=== PATIENT | female | born 1940 | race Caucasian/White ===

== ENCOUNTER 2017-02-04 06:14 | Inpatient (IN) ==
[2017-02-04] MEDS ORDERED: *HR* FentaNYL (PF) 100 MCG/2 ML VIAL ONE (06:37)
[2017-02-04] MEDS ORDERED: Dexamethasone 4 MG/ML VIAL ONE (06:37)
[2017-02-04] MEDS ORDERED: *HR* Succinylcholine 200 MG/10 ML VIAL IVP ONE (06:37)
[2017-02-04] MEDS ORDERED: *HR* Propofol 200 MG/20 ML VIAL IVP ONE (06:37)
[2017-02-04] MEDS ORDERED: Lidocaine -MPF 2% 2 ML VIAL ONE (06:37)
[2017-02-04] MEDS ORDERED: Ondansetron 4 MG/2 ML VIAL ONE (06:37)
[2017-02-04] MEDS ORDERED: *HR* Remifentanil 1 MG VIAL IVP ONE (06:37)
[2017-02-04] MEDS ORDERED: Lidocaine -MPF 1% 2 ML VIAL ID ONE (06:45)
[2017-02-04] MEDS ORDERED: CeFAZolin Pre 2,000 MG/100 ML 2,000 MG/100 ML BAG IVPB ONE (06:45)
[2017-02-04] MEDS ORDERED: EPHEDrine 50 MG/ML VIAL ONE (06:47)
--- NOTE | 2017-02-04 07:06 | Anesthesia Evaluation PreOp ---
Date of Encounter: 02/04/17 Time of Encounter: 06:55 - Past History Planned Operation: laminectomy, removal of hardware Cardiac History: Hyperlipidemia, Arrhythmia Pulmonary History: Denies Any Significant HX [employer] History: Denies Any Significant HX Other Medical History: GERD Anesthesia History: No Prior Anesthetic Complications Alcohol Use: none Drug use: none Medications and Allergies Atenolol [Tenormin] 50 mg PO BID 10/30/15 [History] Cyanocobalamin (Vitamin B-12) [Vitamin B-12] 100 mcg PO DAILY 10/30/15 [History] Fish Oil/Dha/Epa [Fish Oil 1,200 mg Fish Oil] 1 cap PO DAILY 12/11/15 [History] Naproxen Sodium [Aleve] 220 mg PO BID PRN 12/11/15 [History] Acetaminophen [Tylenol] 500 mg PO Q6HR PRN 06/12/16 [History] OxyCODONE Immed Rel [Roxicodone 5 MG] 5 mg PO Q6HR PRN #60 tablet 06/14/16 [Rx] Allergies No Known Allergies Allergy (Verified 01/28/17 15:24) - Meds/Allergy Pre-op Review Medications Reviewed: Yes Allergies Reviewed: Yes Beta Blockers on Current Med List: Yes (Last dose 1800 02/03/17) Anesthesia Results - Labs Laboratory Tests 06/13/16 01/28/17 01/28/17 04:20 15:35 15:35 WBC 6.2 Hgb 10.8 L Hct 34.5 L Plt Count 277 PT 12.5 H INR 1.2 Sodium Potassium Chloride Carbon Dioxide BUN Creatinine BUN/Creatinine Ratio 19 Glucose 118 H 01/28/17 01/28/17 15:35 15:35 WBC Hgb Hct Plt Count PT INR Sodium 138 Potassium 3.8 Chloride 102 Carbon Dioxide 27 BUN 23 H Creatinine 1.57 H BUN/Creatinine Ratio Glucose - Imaging EKG: report reviewed (sinus kaylee), image reviewed Anesthesia Exam Selected Entries 02/04/17 06:40 Temperature 98.0 F Pulse Rate 60 Respiratory Rate 18 Blood Pressure 194/75 O2 Sat by Pulse Oximetry 98 Weight: 69 kg NPO (# of Hours): over 8 hours - HEENT Pupil (Motor): Pupils equal Mallampati: II Teeth: Edentulous Oral Opening: Greater than 3 - Cardiac Rhythm: Regular Murmur: None - Pulmonary Breath Sounds: bilateral Clear Anesthesia Assess/Plan ASA Score: 2 Modified Dru Scale for Level of Consciousness: Cooperative, oriented, and tranquil Anesthetic Plan: General Monitoring Plan: Standard Monitors Recovery Plan: PACU
[2017-02-04] MEDS ORDERED: Ondansetron 4 MG/2 ML VIAL IVP ONE (07:08)
[2017-02-04] MEDS ORDERED: Acetaminophen IV 1,000 MG/100 ML INFUS..BTL ONE (07:17)
[2017-02-04] MEDS: Ringers Solution, Lactated 1,000 ML IVC SCH ×2 (07:25→09:30)
--- NOTE | 2017-02-04 07:48 | History & Physical Report ---
Date of Encounter: 02/04/17 Time of Encounter: 07:40 24 Hour HP Update - Instructions Instructions: If the History and Physical is less than 30 days old and was completed prior to A.M. admission and or procedure and has NOT been updated on calendar day of procedure please complete this update prior to performing procedure. - Update Patient reports changes in Medical Condition: No Changes in examination, assessment, or condition: No Changes in Medication: No Preop tests/diagnostics Reviewed: Yes Pre-Op MRSA Screen: Negative Surgery Remains Indicated: Yes Consent for Planned Operative Procedure(s) Verified: Yes - Pre-Operative Checklist Preoperative Checklist Indicated: No Prophylactic Antibiotic Ordered: Yes Home Medications Include Beta Xin: Yes Beta Xin Taken Today (Day of Surgery): No Beta Xin Taken Yesterday (Day Prior to Surgery): Yes Is VTE Prophylaxis Indicated?: Yes
[2017-02-04] MEDS ORDERED: *HR* Morphine 10 MG/ML VIAL ONE (10:01)
--- NOTE | 2017-02-04 10:02 | Orthopedic Operative Note ---
Date of procedure: 02/04/17 Pre-op diagnosis: Lumbar radiculopathy, lumbar stenosis, status post lumbar fusion Post-op diagnosis: same Operation/Findings: Exploration of fusion, removal of hardware, L4-L5: The patient successfully underwent general endotracheal anesthesia. The patient was given antibiotics prior to the start of the procedure. Compression boots and stockings were used for deep vein thrombosis prophylaxis. A Bray catheter was placed. Leads for neuro monitoring were placed on the upper and lower extremities. This included the cranium. The neuro monitoring personnel confirmed there were satisfactory readings prior to the start of the procedure. The patient was turned prone on the Edvin table. The back was prepped and draped in the usual sterile fashion. An incision was was marked and centered over the involved L4 and L5 levels in the mid line using the previous skin incision.. The incision was deepened through the lumbar fascia. Bovie cautery and Castro elevators were used to reflect the paraspinal musculature at the lateral extent of the transverse processes of the involved L4 and L5 levels. levels. Jodi clamps were placed over the spinous processes. An intraoperative lateral fluorograph was obtained. We evaluated the pedicle screws at L4 and L5 and they were seen to be in satisfactory position. We explored the fusion and there appeared to be a solid arthrodesis bilaterally of the facets and intertransverse region. We then carefully dissected scar tissue such we can get to the right side of the L4 -L5 disc space. We identified and L4-5 disc spacer which was extruded posteriorly. We retrieved the interbody spaces at L4-5 carefully. We then copiously irrigated the wound. We then closed the wound in layers with 1 Vicryl for the fascia, 2-0 Vicryl. Subcutaneous tissue, and Dermabond was used for skin closure. Sterile dressings were placed over the wound. The patient was turned supine on a hospital bed and extubated. All sponge instruments and needle counts were correct at the end of the procedure. The patient tolerated the procedure well without complications. Anesthesia: GETA Surgeon: Edward Sanchez Jr Estimated blood loss (cc): 40 Condition: stable Disposition: PACU
[2017-02-04] MEDS: *HR* Morphine 2 MG/ML SYRINGE IVP PRN ×4 (10:15→10:30)
[2017-02-04] MEDS ORDERED: *HR* HYDROmorphone (PF) 1 MG/ML SYRINGE ONE (10:31)
[2017-02-04] MEDS: *HR* HYDROmorphone (PF) 1 MG/ML SYRINGE IVP PRN ×2 (10:35→10:40)
--- NOTE | 2017-02-04 10:54 | Anesthesia Evaluation Post Op ---
Date of Encounter: 02/04/17 Time of Encounter: 10:53 - Vital Signs Vital Signs: Vital Signs/O2 Sat, Most Current Temp Pulse Resp BP Pulse Ox 98.0 F 63 16 158/69 100 02/04/17 10:38 02/04/17 10:38 02/04/17 10:38 02/04/17 10:38 02/04/17 10:38 - Airway Airway: Non-obstructed - Cardiovascular Regular Rate - Mental Status Mental Status: Alert & Oriented, Answers Appropriately - Pain Pain Scale: 0 Pain Scale used: Numeric (1 - 10) - Nausea Vomiting Nausea Vomiting: Not Present - Hydration Hydration: Ice chips, Bray catheter - Discharge PostOp Status: Transfer Patient to floor
[2017-02-04] MEDS ORDERED: Ondansetron 4 MG/2 ML VIAL IVP PRN (11:12)
[2017-02-04] MEDS ORDERED: Ringers Solution, Lactated 1,000 ML IVC SCH (11:12)
[2017-02-04] MEDS ORDERED: *HR* Morphine 2 MG/ML SYRINGE IVP PRN (11:12)
[2017-02-04] MEDS ORDERED: Naloxone 0.4 MG/ML INJ IVP PRN (11:12)
[2017-02-04] MEDS ORDERED: *HR* OxyCODONE Immed Rel 5 MG TABLET PO SCH (12:00)
[2017-02-04] MEDS: ceFAZolin 2,000 MG in D5% in Water 100 ML IVPB SCH (15:08)
[2017-02-04] MEDS: *HR* OxyCODONE Immed Rel 5 MG TABLET PO PRN ×2 (17:08→20:59)
[2017-02-04] MEDS: hydroCHLOROthiazide 25 MG TABLET PO SCH (21:01)
[2017-02-05] MEDS: ceFAZolin 2,000 MG in D5% in Water 100 ML IVPB SCH (00:48)
[2017-02-05] MEDS: *HR* OxyCODONE Immed Rel 5 MG TABLET PO PRN ×3 (03:43→14:19)
[2017-02-05] MEDS: hydroCHLOROthiazide 25 MG TABLET PO SCH (07:56)
[2017-02-05] MEDS ORDERED: (Fish Oil/Dha/Epa [Fish Oil 1,200 Mg Fish Oil] 1 CAP) PO SCH (09:00)
[2017-02-05] MEDS ORDERED: Cholecalciferol (D-3) 1,000 UNIT TABLET PO SCH (09:00)
[2017-02-05] MEDS ORDERED: (Cyanocobalamin (Vitamin B-12) [Vitamin B-12] 100 MCG PO SCH (09:00)
--- NOTE | 2017-02-05 12:18 | Discharge Summary ---
Date of Encounter: 02/05/17 Time of Encounter: 12:16 - Discharge Diagnosis (1) Lumbar stenosis with neurogenic claudication Priority: Primary Status: Chronic - Discharge Medications Prescriptions: OxyCODONE Immed Rel [Roxicodone 5 MG] 5 mg PO Q4HR PRN #60 tab PRN Reason: Severe Pain Home Medications: Atenolol [Tenormin] 50 mg PO BID 10/30/15 [History] Cyanocobalamin (Vitamin B-12) [Vitamin B-12] 100 mcg PO DAILY 10/30/15 [History] Fish Oil/Dha/Epa [Fish Oil 1,200 mg Fish Oil] 1 cap PO DAILY 12/11/15 [History] Cholecalciferol (D-3) [Vitamin D] 1,000 unit PO DAILY 02/04/17 [History] hydroCHLOROthiazide [Hydrochlorothiazide] 25 mg PO BID 02/04/17 [History] OxyCODONE Immed Rel [Roxicodone 5 MG] 5 mg PO Q4HR PRN #60 tab 02/05/17 [Rx] Allergies/Adverse Reactions: Allergies No Known Allergies Allergy (Verified 02/04/17 07:42) - Impressions ITS Impressions Fluoroscopy 02/04/17 09:45 IMPRESSION: Fluoroscopy provided for procedure guidance. Please refer to dedicated procedure note for further details. D/ / 02/04/2017 13:31:01 Lidia Salgado MD / mark Interpreting Provider: Lidia Salgado MD Lumbar Spine X-Ray 02/04/17 09:46 IMPRESSION: Fluoroscopy provided for procedure guidance. Please refer to dedicated procedure note for further details. D/ / 02/04/2017 13:31:01 Lidia Salgado MD / mark Interpreting Provider: Lidia Salgado MD Date of admission: 02/04/17 12:00 Primary care physician: PCP NONE Consults: 02/04/17 11:12 Consult to Occupational Therapy [CONS] Routine Comment: Evaluate, develop and implement POC Reason for Consult: Postoperative Consult to Physical Therapy [CONS] Routine Comment: Evaluate, develop and implement POC Reason for Consult: Postoperative Consult to Spine Navigator [CONS] [CONS] Routine - Patient Status Disposition: Home, Self-Care Condition: Good Functional capacity at discharge: uses cane/walker Overall status at discharge: patient is progressing back to baseline - Discharge Instructions Follow Up With: NONE,PCP [Primary Care Provider] - - Diet and Activity Activity: as per physical therapy Diet: advance to your usual diet - Hospital Course Hospital course: Ms. Yee is a 76 year old female The patient had an uneventful postoperative course. Progressed from intravenous analgesic needs to oral analgesic needs only. Remained neurovascularly intact and mobilized satisfactorily. All intraoperative and/or postoperative radiographic studies were satisfactory. Patient is discharged with plan for rehabilitation and follow-up in 2 weeks post discharge on analgesic medication and patient's home medications. - Time Spent with Patient Total time spent providing and/or coordinating discharge services: - VTE Documentation of Mechanical Device: Intermittent pneumatic compression device
[2017-02-05 16:38] VITALS: BP 141/73
== END 2017-02-05 18:23 | disposition home or self-care (01) | DRG 517 ==
LOC: SAMDAY 06:14 → 3NENU 12:00
PROVIDERS: ADMIT Orthopaedic Surgery Orthopaedic Surgery of the Spine; ATTEND Orthopaedic Surgery Orthopaedic Surgery of the Spine